=== PATIENT | male | born 1955 | race African-American/Black ===

== ENCOUNTER 2021-10-26 16:17 | Emergency (ER) | payer MEDICARE, OTHER ==
[~2021-10-26] VITALS: Ht 172.7 cm; Wt 68.0 kg
[2021-10-26] MEDS ORDERED: HYDROCODONE/ACETAMINOPHEN 5/325MG TABLET PO ONE (16:45)
[2021-10-26] MEDS ORDERED: KETOROLAC 60MG/2ML VIAL IM ONE (19:15)
[2021-10-26] MEDS ORDERED: DICL75TA5 MT (20:23)
[2021-10-26] MEDS ORDERED: LIDO700A15 TP (20:23)
[2021-10-26] MEDS ORDERED: CYCL10TA7 MT (20:23)
[2021-10-26] MEDS ORDERED: KETOROLAC 30MG/ML VIAL IM NR (20:45)
[2021-10-26] MEDS ORDERED: HYDROCODONE/ACETAMINOPHEN 5/325MG TABLET PO NR (20:45)
[2021-10-26 22:04] VITALS: BP 126/75
== END 2021-10-26 22:09 | disposition home or self-care (01) ==
LOC: ER 16:17
DX: M54.41 Lumbago with sciatica, right side (principal); I10 Essential (primary) hypertension
CPT/HCPCS: 72100; 96372; 99283; J1885